=== PATIENT | male | born 1960 | race Caucasian/White ===

== ENCOUNTER 2023-06-13 10:57 | Emergency (ER) | payer MEDICARE, MEDICAID ==
[~2023-06-13] VITALS: Ht 167.6 cm; Wt 140.9 kg
[~2023-06-13 10:57] MED LIST: ALBUTEROL SULFAT8 MG; ALBUTEROL1.25 MG/3 IH; ALDACTONE 25MG25 M1 PO; ATROVENT INHALE14 GM IH; BETAPACE AF80 MG/TA1 PO; CANA300T PO; FLEXERIL 1010 MG/TAB PO; FORT1000TA PO; HCTZ 25MG25 MG PO; LASIX 80MG TABL80 MG PO; LASIX40 MG PO; LISINOPRIL20 MG PO; LORTAB 7.5/5001 TAB; MAREPA1200 MG PO; NORCO 325 MG-51 TAB PO; NORCO 325 MG-7.1 TAB PO; NORVASC5 MG PO; PENICILLIN250 MG PO; POTASSIUM20 MEQ PO; PRINIVIL20 MG PO; PROAIR HFA0.09 MG/AC IH; TOPROL XL 50MG50 MG PO; TOPROL XL200 MG PO; ZYLOPRIM 300MG300 MG PO; [UNRECOGNIZED DRUG - OTHER]
[2023-06-13 11:01] VITALS: TEMP 98.4
[2023-06-13 11:18] LABS: BASO % 0.4 % (0.0-2.0); EOS # 0.2 K/mm3 (0.0-0.7); EOS % 2.1 % (0.0-4.0); GRAN # 6.7 K/mm3 (1.4-6.5); GRAN % 74.6 % (42.2-75.2); HEMATOCRIT 43.3 % (42.0-52.0); HEMOGLOBIN 14.1 g/dl (13.5-18.0); LYMPH # 1.4 K/mm3 (1.2-3.4); LYMPH % 15.3 % (20.0-51.0); MEAN CELL VOLUME 95 fl (80.0-100.0); MEAN CORPUSCULAR HEMOGLOBIN 31 pg (27-31); MEAN CORPUSCULAR HGB CONC 33 g/dl (33.0-37.0); MEAN PLATELET VOLUME 9.2 fl (7.4-10.4); MONO # 0.6 K/mm3 (0.1-0.6); PLATELET COUNT 210 K/mm3 (130-400); RED BLOOD COUNT 4.55 M/mm3 (4.20-5.60); REDCELL DISTRIBUTION WIDTH-CV 13.7 % (11.5-14.5)
[2023-06-13 12:09] LABS: ALBUMIN 3.3 gm/dL (3.4-4.8); BILIRUBIN,TOTAL 0.7 mg/dL (0.2-1.2); CALCIUM 9.1 mg/dL (8.4-10.2); CREATININE, serum 1.47 mg/dL (0.72-1.25); POTASSIUM 3.9 mmol/L (3.5-4.5); TOTAL PROTEIN 6.6 gm/dL (6.2-8.1)
[2023-06-13 12:24] LABS: TROPONIN-I 0.013 ng/mL (0.00-0.033)
[2023-06-13] MEDS ORDERED: LASIX 40MG TABL40 MG PO ×2 (13:10→13:11)
[2023-06-13] MEDS ORDERED: NEURONTIN400 MG/CAP PO (13:12)
[2023-06-13] MEDS ORDERED: NEURONTIN800 MG/TAB PO (13:12)
[2023-06-13] MEDS ORDERED: LIPITOR 40MG TA40 MG PO (13:13)
[2023-06-13] MEDS ORDERED: ULTRAM 50MG TAB50 MG PO (13:13)
[2023-06-13] MEDS ORDERED: ALDACTONE 25MG25 M1 PO (13:14)
[2023-06-13] MEDS ORDERED: BETAPACE AF80 MG/TA1 PO (13:15)
[2023-06-13] MEDS ORDERED: SYNTHROID0.075 MG/T PO (13:16)
[2023-06-13] MEDS ORDERED: PRINIVIL2.5 MG PO (13:16)
[2023-06-13] MEDS ORDERED: ZYLOPRIM 300MG300 MG PO (13:17)
[2023-06-13] MEDS ORDERED: TRICOR145 MG PO (13:19)
[2023-06-13] MEDS ORDERED: INSULIN LI100 UNIT/1 SQ (13:21)
[2023-06-13] MEDS ORDERED: LANTUS SOLOS100 U/ML SQ (13:22)
[2023-06-13] MEDS ORDERED: INSULIN GL100 UNIT/1 SQ (13:23)
[2023-06-13] MEDS ORDERED: PROAIR HFA0.09 MG/AC IH (13:25)
[2023-06-13] MEDS ORDERED: ANORO IH (13:27)
[2023-06-13] MEDS ORDERED: ALVESCO160 MCG/Ac IH (13:27)
[2023-06-13] MEDS ORDERED: ASPIRIN E.C. 8181 MG PO (13:29)
[2023-06-13] MEDS ORDERED: AMOXICILLIN 8751 TAB PO (14:53)
[2023-06-13] MEDS ORDERED: ZITHROMAX Z PA250 MG PO (14:53)
[2023-06-13 15:04] VITALS: BP 117/74; PULSE 69
== END 2023-06-13 15:15 | disposition home or self-care (01) ==
LOC: COL.ER 10:57
PROVIDERS: Emergency Medicine
DX: J44.1 Chronic obstructive pulmonary disease with (acute) exacerbation (principal); J18.9 Pneumonia, unspecified organism; F17.210 Nicotine dependence, cigarettes, uncomplicated; Z79.899 Other long term (current) drug therapy
CPT/HCPCS: J0456; J0696; J7050; J8540

== ENCOUNTER 2023-07-25 21:19 | Emergency (ER) | payer MEDICARE, MEDICAID ==
[~2023-07-25] VITALS: Ht 167.6 cm; Wt 136.4 kg
[~2023-07-25 21:19] MED LIST changes: +ALVESCO160 MCG/Ac IH; +AMOXICILLIN 8751 TAB PO; +ANORO IH; +ASPIRIN E.C. 8181 MG PO; +INSULIN GL100 UNIT/1 SQ; +INSULIN LI100 UNIT/1 SQ; +LANTUS SOLOS100 U/ML SQ; +LASIX 40MG TABL40 MG PO; +LIPITOR 40MG TA40 MG PO; +NEURONTIN400 MG/CAP PO; +NEURONTIN800 MG/TAB PO; +PRINIVIL2.5 MG PO; +SYNTHROID0.075 MG/T PO; +TRICOR145 MG PO; +ULTRAM 50MG TAB50 MG PO; +ZITHROMAX Z PA250 MG PO
[2023-07-25 21:25] VITALS: TEMP 98.1
[2023-07-25] MEDS ORDERED: CEPHALEXIN500 M1 PO (23:28)
[2023-07-25] MEDS ORDERED: Cephalexin 500 MG CAP PO ONE (23:30)
[2023-07-25 23:39] VITALS: BP 126/68; PULSE 78
== END 2023-07-25 23:39 | disposition home or self-care (01) ==
LOC: COL.ER 21:19
DX: S91.201A Unspecified open wound of right great toe with damage to nail, initial encounter (principal); F17.210 Nicotine dependence, cigarettes, uncomplicated; W22.8XXA Striking against or struck by other objects, initial encounter

== ENCOUNTER → 2023-10-08 | Outpatient (CLI) | payer MEDICARE, MEDICAID ==
[~2023-10-08] MED LIST changes: +CEPHALEXIN500 M1 PO
== END ==
LOC: COL.CARD 07:28
DX: J44.9 Chronic obstructive pulmonary disease, unspecified (principal)